=== PATIENT | female | born 1965 | race Caucasian/White ===

== ENCOUNTER 2020-03-29 10:32 | Emergency (ER) | payer BC ==
[~2020-03-29] VITALS: Ht 167.6 cm; Wt 59.0 kg
[2020-03-29 10:40] VITALS: BP_SYST 149
[2020-03-29 12:10] LABS: BILIRUBIN,URINE NEGATIVE (NEGATIVE); BLOOD, URINE 3+ (NEGATIVE); CLARITY/URINE SLIGHTLY CLOUDY (CLEAR); COLOR,URINE YELLOW (YELLOW); GLUCOSE,URINE NEGATIVE (NEGATIVE); KETONES,URINE NEGATIVE (NEGATIVE); LEUKOCYTE ESTERASE ,URINE NEGATIVE (NEGATIVE); NITRITE, URINE NEGATIVE (NEGATIVE); PH,URINE 5.5 (5.0-8.0); PROTEIN URINE NEGATIVE (NEGATIVE); UROBILINOGEN,URINE 0.2 (0.2-1.0)
[2020-03-29 12:18] LABS: BACTERIA,URINE FEW /HPF (None Seen); WBC,URINE 0-3 /HPF (0-3)
[2020-03-29] MEDS ORDERED: KETOROLAC TROMETHAMINE 15 MG VIAL IM ONE (12:45)
[2020-03-29 13:05] VITALS: BP_SYST 141
== END 2020-03-29 13:05 | disposition home or self-care (01) ==
LOC: SED 10:32
DX: N20.0 Calculus of kidney (principal); Z88.0 Allergy status to penicillin; Z88.6 Allergy status to analgesic agent
CPT/HCPCS: 81000; 96374; 99283; J1885; 96372